=== PATIENT | female | born 1980 | race Asian ===

== ENCOUNTER 2019-04-17 09:31 | Day surgery (SDC) | payer OTHER ==
[~2019-04-17 09:31] MED LIST: IBUP800 PO; MULVITMINE PO; OXYACE5T PO; PROACE100 PO; [UNRECOGNIZED DRUG - OTHER]
--- NOTE | 2019-04-17 11:35 | NUR ---
ASSUMED CARE OF PATIENT AT 1100 VSS WITH LOW BP.
--- NOTE | 2019-04-17 12:19 | NUR ---
Discharge instructions reviewed with patient. Patient verbalizes understanding. Copy given to patient to take home. BANDAID REMAINS CDI NO SWELLING OR BLEEDING
--- NOTE | 2019-04-17 12:20 | NUR ---
ULTRA SOUND HERE PATIENT TO BE DISCHARGED AFTER SCAN COMPLETE.
--- NOTE | 2019-04-17 12:29 | NUR ---
1220 ASSUMED CARE FROM EZRA SILVA. PT RESTING COMFORTABLE. VOICE OVER ANNOUNCER AT BEDSIDE. AWAIT FOR CONFIRMATION TO DISCHARGE PER RADIOLOGIST.
--- NOTE | 2019-04-17 12:36 | NUR ---
DR MANNING, RADIOLOGIST HERE AT BEDSIDE. INSTRUCTED PATIENT TO OBSERVE AT HOME INCREASE HEART RATE OR ANY NEW CHANGES, TO RETURN BACK TO HOSPITAL TO BE EVALUATED. PATIENT DENIES ANY NEW CHANGES, STABLE
--- NOTE | 2019-04-17 12:44 | NUR ---
DISCHARGE HOME, BANDAID RIGHT FLANK AREA D&I. C/O OF DISCOMFORT TO AREA. INSTRUCTED TO TAKE SOME TYLENOL FOR PAIN AND IF NOT BETTER OR INCREASE PAIN OR ANY NEW CHANGES, CALL NUMBER THAT WAS GIVEN TO HER.
== END 2019-04-17 22:59 | disposition home or self-care (01) ==
LOC: US 09:31
DX: B18.1 Chronic viral hepatitis B without delta-agent (principal)
CPT/HCPCS: 47000; 76942; 88307; 88313